=== PATIENT | female | born 1985 ===

== ENCOUNTER 2018-01-20 11:52 | Emergency (ER) | payer OTHER ==
[2018-01-20 12:13] VITALS: RESP 18; O2SAT 99
[2018-01-20 12:51] LABS: SQUAMOUS EPITHIAL 2 /hpf (0-5); URINE BILIRUBIN NEGATIVE (NEGATIVE); URINE BLOOD LARGE (NEGATIVE); URINE CLARITY CLOUDY (Clear); URINE COLOR YELLOW (YELLOW); URINE GLUCOSE (UA) NEG (Normal); URINE LEUKOCYTE ESTERASE LARGE Leu/uL (Negative); URINE PROTEIN 30 mg/dL (NEGATIVE); URINE UROBILINOGEN 0.2-1.0 mg/dL (0.2-1.0)
[2018-01-20 12:52] LABS: HCG,QUALITATIVE URINE NEGATIVE (NEGATIVE)
--- NOTE | 2018-01-20 12:55 | ED PDOC ---
HPI: Female Pain Time Seen by Provider: 01/20/18 12:11 Chief Complaint (Nursing): Female Genitourinary Chief Complaint (Provider): Dysuria, Cough History Per: Patient History/Exam Limitations: no limitations Onset/Duration Of Symptoms: Days (x 4) Current Symptoms Are (Timing): Still Present Associated Symptoms: Urinary Symptoms (dysuria and frequency). denies: Fever, Chills, Nausea, Vomiting, Back Pain, Chest Pain Additional Complaint(s): Chely is a 32 y/o female who presents to the ED complaining of dysuria and urinary frequency, dry cough, sore throat, and nasal congestion for the past 4 days. Patient denies fever, diarrhea, vomiting, rash, back pain, hematuria, vaginal bleeding, vaginal discharge, abdominal pain, chest pain, leg swelling, otalgia, or flank pain. She denies recent travel however notes a sick contact in her daughter. Two days ago, she took theraflu for her symptoms but has not taken anything since. PMD: Pan[place] Abnormal Vaginal Bleeding: No Past Medical History Reviewed: Historical Data, Nursing Documentation, Vital Signs Vital Signs: Last Vital Signs Temp 97.0 F L 01/20/18 12:10 Pulse 91 H 01/20/18 12:10 Resp 18 01/20/18 12:10 BP 128/86 01/20/18 12:10 Pulse Ox 99 01/20/18 12:10 - Medical History PMH: Anemia, Arthritis, Asthma, Back Problems, HTN Denies: Chronic Kidney Disease - Surgical History Surgical History: No Surg Hx - Family History Family History: States: Unknown Family Hx - Living Arrangements Living Arrangements: With Family - Social History Current smoker - smoking cessation education provided: Yes (4-5/day) Alcohol: None Drugs: Denies - Home Medications Home Medications: Ambulatory Orders Medication Instructions Recorded Albuterol Sulfate [Ventolin Hfa] 0.09 mg IH PRN PRN 09/11/15 Enalapril Maleate [Vasotec] 10 mg PO DAILY #30 tab 09/21/15 Albuterol HFA [Ventolin HFA 90 1 puff IH ASDIR #1 unit 01/19/16 mcg/actuation (8 g)] Azithromycin [Zithromax Z-Clarence] 250 mg PO DAILY #1 packet 01/19/16 Prednisone 20 mg PO BID #10 tablet 01/19/16 Ondansetron ODT [Zofran ODT] 2 mg PO Q6 PRN #5 odt 12/13/16 Nitrofurantoin Macrocrystals 100 mg PO BID #14 cap 01/20/18 [Macrobid] Phenazopyridine [Pyridium] 200 mg PO Q12 PRN #4 tab 01/20/18 Promethazine DM [Phenergan DM 10 ml PO Q6 PRN #200 ml 01/20/18 Syrup] - Allergies Allergies/Adverse Reactions: Allergies Allergy/AdvReac Type Severity Reaction Status Date / Time No Known Allergies Allergy Verified 12/13/16 09:56 Review of Systems ROS Statement: Except As Marked, All Systems Reviewed And Found Negative Constitutional: Negative for: Fever, Chills ENT: Positive for: Nose Congestion, Throat Pain Cardiovascular: Negative for: Chest Pain Respiratory: Positive for: Cough. Negative for: Shortness of Breath Gastrointestinal: Negative for: Nausea, Vomiting, Abdominal Pain (flank) Genitourinary Female: Positive for: Dysuria, Frequency. Negative for: Incontinence, Hematuria, Vaginal Discharge, Vaginal Bleeding Musculoskeletal: Negative for: Neck Pain, Back Pain Skin: Negative for: Rash Neurological: Negative for: Weakness Physical Exam - Reviewed Nursing Documentation Reviewed: Yes Vital Signs Reviewed: Yes - Physical Exam Appears: Positive for: Well, Non-toxic, No Acute Distress Head Exam: Positive for: ATRAUMATIC, NORMOCEPHALIC Skin: Positive for: Normal Color, Warm, Dry Eye Exam: Positive for: EOMI, PERRL ENT: Positive for: Pharynx Is (clear, uvula midline), TM Is/Are (nonerythematous , nonbulging bilaterally), Pharyngeal Erythema (mild). Negative for: Tonsillar Exudate, Tonsillar Swelling Neck: Positive for: Painless ROM, Supple Cardiovascular/Chest: Positive for: Regular Rate, Rhythm. Negative for: Murmur , Bradycardia, Tachycardia Respiratory: Positive for: Normal Breath Sounds. Negative for: Decreased Breath Sounds, Accessory Muscle Use, Respiratory Distress Gastrointestinal/Abdominal: Positive for: Soft. Negative for: Tenderness, Mass , Distended, Guarding, Rebound Back: Positive for: Normal Inspection. Negative for: L CVA Tenderness, R CVA Tenderness, Vertebral Tenderness Extremity: Positive for: Normal ROM. Negative for: Deformity Neurologic/Psych: Positive for: Alert, Oriented, Gait (steady in ED) - Laboratory Results Urine POC: Negative Urine dip results: Positive for: Leukocyte Esterase (small), Blood (moderate). Negative for: Nitrate, Ketones, Glucose, Bilirubin, Protein - ECG O2 Sat by Pulse Oximetry: 99 (RA) Pulse Ox Interpretation: Normal Medical Decision Making Medical Decision Making: Time: 12:22 Initial Impression: Pharyngitis, Cough, Dysuria probable UTI Initial Plan: --Motrin --Pyridium --Urine Culture --Rapid Strep --Urine --Urinalysis Urine Dip: Moderate blood, small leukocytes, everything else negative Urine : Negative Rapid Strep: Negative Urinalysis: Shows UTI --Macrobid 100mg for urinary tract infection ordered. On re-evaluation, patient reports improvement of symptoms. On exam, patient remains AAOx3, in no acute distress. On exam, neck is supple, lungs CTA, cardiac RRR, abdomen is soft and non-tender, neuro exam shows no focal findings. Diagnostic results d/w the patient in great detail. Dx of cough, viral pharyngitis, UTI d/w the patient. Based on history, exam and diagnostic results plan will be for discharge and outpatient follow up. Advised to follow up with primary care physician/clinic in 1-2 days without fail. Advised to take medication as prescribed. Return to the emergency room at any time for any new or worsening symptoms. Patient states she fully agrees with and understands discharge instructions. States that she agrees with the plan and disposition. Verbalized and repeated discharge instructions and plan. I have given the patient opportunity to ask any additional questions. Scribe Attestation: Documented by Trenton Kelley, acting as a scribe for Carly Arambula PA-C Provider Scribe Attestation: All medical record entries made by the Scribe were at my direction and personally dictated by me. I have reviewed the chart and agree that the record accurately reflects my personal performance of the history, physical exam, medical decision making, and the department course for this patient. I have also personally directed, reviewed, and agree with the discharge instructions and disposition. Disposition - Clinical Impression Clinical Impression: Urinary tract infection, Cough in adult patient, Viral pharyngitis - Patient ED Disposition Is Patient to be Admitted: No Counseled Patient/Family Regarding: Studies Performed, Diagnosis, Need For Followup, Rx Given - Disposition Referrals: [facility] [Outside] Disposition: Routine/Home Disposition Time: 14:05 Condition: STABLE Prescriptions: Nitrofurantoin Macrocrystals [Macrobid] 100 mg PO BID #14 cap Phenazopyridine [Pyridium] 200 mg PO Q12 PRN #4 tab PRN Reason: urinary discomfort Promethazine DM [Phenergan DM Syrup] 10 ml PO Q6 PRN #200 ml PRN Reason: Cough Instructions: Viral Pharyngitis, Urinary Tract Infections in Adults, Cough in Adults, Cough, Runny Nose, and the Common Cold Forms: [employer] ([place]), [facility] ED School/Work Excuse Print Language: DANISH - POA Present On Arrival: None Results - Lab Results Lab Results: 01/20/18 01/20/18 12:53 12:34 Urine Color Yellow Urine Clarity Cloudy Urine pH 6.0 Ur Specific [place] 1.020 Urine Protein 30 Urine Glucose (UA) Neg Urine Ketones Negative Urine Blood Large Urine Nitrate Negative Urine Bilirubin Negative Urine Urobilinogen 0.2-1.0 Ur Leukocyte Esterase Large Urine RBC (Auto) 499 H Urine Microscopic WBC 299 H Ur Squamous Epith Cells 2 Urine HCG, Qual Negative Grp A Beta Strep Ag Negative
[2018-01-20 13:37] VITALS: BP 127/77; PULSE 76; TEMP 98.3
== END 2018-01-20 14:26 | disposition home or self-care (01) ==
LOC: H.ER 11:52
DX: N39.0 Urinary tract infection, site not specified (principal); R05 Cough; J02.9 Acute pharyngitis, unspecified; I10 Essential (primary) hypertension; F17.200 Nicotine dependence, unspecified, uncomplicated; J45.909 Unspecified asthma, uncomplicated

== ENCOUNTER 2018-04-21 17:15 | Emergency (ER) | payer OTHER ==
[2018-04-21 17:20] VITALS: BP 157/82; PULSE 86; RESP 16; TEMP 98.6; O2SAT 100
--- NOTE | 2018-04-21 18:13 | ED PDOC ---
HPI: Influenza Time Seen by Provider: 04/21/18 18:05 Chief Complaint: Cough, Cold, Congestion Chief Complaint (Provider): Common Cold History Per: Patient Exam Limitations: no limitations Have you had recent travel within the past 21 days to any of: No Onset/Duration Of Symptoms: Days (three) Symptoms include: headache, bodyaches, sore throat, cough, nasal congestion. denies: fever, vomiting, diarrhea Sick Contacts (Context): None Additional complaint(s):: Pt presents to the ED complaining of three days of not feeling well including a cough, nasal congestion and body aches. Pt denies fever at anytime, NVD or any other symptoms Past Medical History Reviewed: Historical Data, Nursing Documentation, Vital Signs Vital Signs: Last Vital Signs Temp 98.6 F 04/21/18 17:18 Pulse 86 04/21/18 17:18 Resp 16 04/21/18 17:18 BP 157/82 H 04/21/18 17:18 Pulse Ox 100 04/21/18 17:18 - Medical History PMH: Anemia, Arthritis, Asthma, Back Problems, HTN Denies: Chronic Kidney Disease - Family History Family History: States: Unknown Family Hx - Home Medications Home Medications: Ambulatory Orders Medication Instructions Recorded Albuterol Sulfate [Ventolin Hfa] 0.09 mg IH PRN PRN 09/11/15 Enalapril Maleate [Vasotec] 10 mg PO DAILY #30 tab 09/21/15 Albuterol HFA [Ventolin HFA 90 1 puff IH ASDIR #1 unit 01/19/16 mcg/actuation (8 g)] Azithromycin [Zithromax Z-Clarence] 250 mg PO DAILY #1 packet 01/19/16 Prednisone 20 mg PO BID #10 tablet 01/19/16 Ondansetron ODT [Zofran ODT] 2 mg PO Q6 PRN #5 odt 12/13/16 Nitrofurantoin Macrocrystals 100 mg PO BID #14 cap 01/20/18 [Macrobid] Phenazopyridine [Pyridium] 200 mg PO Q12 PRN #4 tab 01/20/18 Promethazine DM [Phenergan DM 10 ml PO Q6 PRN #200 ml 01/20/18 Syrup] Benzonatate 200 mg PO TID #31 capsule 06/11/18 - Allergies Allergies/Adverse Reactions: Allergies Allergy/AdvReac Type Severity Reaction Status Date / Time No Known Allergies Allergy Verified 12/13/16 09:56 Review of Systems ROS Statement: Except As Marked, All Systems Reviewed And Found Negative Constitutional: Negative for: Fever, Chills, Sweats ENT: Positive for: Nose Discharge, Throat Pain Respiratory: Positive for: Cough Gastrointestinal: Negative for: Abdominal Pain Physical Exam - Reviewed Nursing Documentation Reviewed: Yes Vital Signs Reviewed: Yes - Physical Exam Appears: Positive for: Well, Non-toxic, No Acute Distress Head Exam: Positive for: ATRAUMATIC, NORMAL INSPECTION, NORMOCEPHALIC Skin: Positive for: Normal Color, Warm, Dry Eye Exam: Positive for: Normal appearance. Negative for: Periorbital swelling, Periorbital tenderness ENT: Positive for: Pharynx Is (erythematous without tonsillar exudate, edema; the uvula is midline and non-edematous) Neck: Positive for: Normal, Painless ROM, Supple. Negative for: Decreased ROM Cardiovascular/Chest: Positive for: Regular Rate, Rhythm. Negative for: Chest Non Tender, Edema, Gallop, Bradycardia, Tachycardia Respiratory: Positive for: Normal Breath Sounds. Negative for: Crackles, Rales , Rhonchi, Stridor, Wheezing, Respiratory Distress Pulses-Carotid (L): 2+ Pulses-Carotid (R): 2+ Pulses-Radial (L): 2+ Pulses-Radial (R): 2+ Medical Decision Making Medical Decision Making: I: common cold P: tx symptomatically, including REST, Dayquil, Nyquil, Fluids and Chicken Soup - ECG O2 Sat by Pulse Oximetry: 100 Disposition - Clinical Impression Clinical Impression: Common cold - Patient ED Disposition Is Patient to be Admitted: No Doctor Will See Patient In The: Office Counseled Patient/Family Regarding: Diagnosis, Need For Followup - Disposition Referrals: [facility] [Outside] Disposition: Routine/Home Disposition Time: 18:15 Condition: STABLE Additional Instructions: REST DAYQUIL NYQUIL FLUIDS CHICKEN SOUP Prescriptions: Benzonatate 200 mg PO TID #31 capsule
== END 2018-04-21 18:32 | disposition home or self-care (01) ==
LOC: H.ER 17:15
DX: J00 Acute nasopharyngitis [common cold] (principal); I10 Essential (primary) hypertension; J45.909 Unspecified asthma, uncomplicated

== ENCOUNTER 2018-05-07 21:29 | Emergency (ER) | payer OTHER ==
[2018-05-07 21:36] VITALS: BP 155/94; PULSE 97; RESP 18; TEMP 98.6; O2SAT 99
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
== END 2018-05-07 22:35 | disposition home or self-care (01) ==
LOC: H.ER 21:29
DX: S60.212A Contusion of left wrist, initial encounter (principal); S09.90XA Unspecified injury of head, initial encounter; Y04.0XXA Assault by unarmed brawl or fight, initial encounter; Y92.89 Other specified places as the place of occurrence of the external cause; I10 Essential (primary) hypertension; J45.909 Unspecified asthma, uncomplicated